=== PATIENT | female | born 1975 | race Caucasian/White ===

== ENCOUNTER 2017-03-07 16:18 | Emergency (ER) | payer OTHER ==
[~2017-03-07] VITALS: Ht 170.2 cm; Wt 166.4 kg
[2017-03-07 16:18] VITALS: BP 165/88
[~2017-03-07 16:18] MED LIST: AUGM500T34 PO; ZANTTAB PO
[2017-03-07] MEDS ORDERED: CLEO300C2 PO (19:45)
[2017-03-07] MEDS ORDERED: CLINDAMYCIN 150 MG CAP PO ONE (19:45)
[2017-03-18] MEDS ORDERED: BACT800T5 PO (08:07)
== END 2017-03-07 19:56 | disposition home or self-care (01) ==
LOC: M ED 16:18
DX: L03.316 Cellulitis of umbilicus (principal)

== ENCOUNTER → 2017-03-11 | Outpatient (CLI) | payer OTHER ==
[~2017-03-11] MED LIST changes: +BACT800T5 PO; +CLEO300C2 PO; +GASTROGRAFIN SOLUTION 30ML (Q9963) As Ordered ONE; +ISOVUE-370 76% 100ML VIAL (Q9967) As Ordered ONE
--- NOTE | 2017-03-11 11:16 | REP ---
CT abdomen and pelvis with IV and oral contrast: History: Pain in the umbilicus. Strangulation of hernia. Comparison study: May 17, 2015. CT contrast dose: 100 mL of intravenous Isovue 370. CT findings: Preliminary digital data technician radiograph demonstrates an unremarkable bowel gas pattern. The lung bases are clear. There is no evidence of pleural effusion or upper abdominal ascites. The liver is normal in size and homogeneous in texture with evidence of mild diffuse fatty infiltration. The spleen is unremarkable. No adrenal lesion is seen on either side. The gallbladder is surgically absent. No pancreatic abnormality. The kidneys enhance symmetrically and are morphologically intact. No retroperitoneal mass or adenopathy is seen. Normal caliber aorta. Small and large intestinal bowel loops are normal in the abdomen and pelvis. There is a ventral hernia at the umbilicus containing intra-abdominal omental fat. There is some inflammatory edema in the herniated fat and some thickening of the wall of the hernia. This suggests incarceration. No bowel is participating in this hernia. The defect in the anterior abdominal wall measures 2.7 cm craniocaudal by 3.4 cm medial to lateral. No other abdominal wall defect is seen. No uterine or adnexal abnormality is seen. Urinary bladder is unremarkable. No bony destructive lesion is seen. A normal air-filled appendix is seen in the right lower quadrant. Impression: Umbilical hernia transmitting abdominal fat with some inflammatory change suggest incarceration. No evidence of bowel obstruction. Signed by Joshua Garcia MD 03/11/2017 01:19 P
== END ==
LOC: M RAD 07:35
PROVIDERS: ATTEND Internal Medicine
DX: R10.33 Periumbilical pain (principal)

== ENCOUNTER 2017-03-20 10:51 | Day surgery (SDC) | payer OTHER ==
[~2017-03-20] VITALS: Ht 162.6 cm; Wt 163.3 kg
[~2017-03-20 10:51] MED LIST changes: -GASTROGRAFIN SOLUTION 30ML (Q9963) As Ordered ONE; -ISOVUE-370 76% 100ML VIAL (Q9967) As Ordered ONE
[2017-03-20] MEDS ORDERED: LR 1,000 ML IV ONE (11:00)
[2017-03-20 12:17] LABS: CONTROL LINE UCG INT CTR LINE PRESENT
[2017-03-20] MEDS ORDERED: BUPIVACAINE/EPIN 0.25% 30 ML VIAL As Ordered ONE (12:54)
[2017-03-20] MEDS ORDERED: ceFAZolin 1GM INJ (J0690) As Ordered ONE (13:34)
[2017-03-20] MEDS ORDERED: dexameTHASONE 4 MG/ML 1ML VIAL (J1100) As Ordered ONE (13:49)
[2017-03-20] MEDS ORDERED: MIDAZOLAM INJ 2 MG/2 ML VIAL (J2250) As Ordered ONE (13:49)
[2017-03-20] MEDS ORDERED: ROCURONIUM BROMIDE 50 MG/5 ML VIAL/SYRINGE As Ordered ONE ×2 (13:49→13:54)
[2017-03-20] MEDS ORDERED: fentaNYL 250 MCG/5 ML INJECTION (J3010) As Ordered ONE (13:49)
[2017-03-20] MEDS ORDERED: LIDOCAINE 2% INJ 100 MG/5 ML SDV (FOR ANES.) As Ordered ONE (13:49)
[2017-03-20] MEDS ORDERED: KETOROLAC 60 MG/2 ML VIAL (J1885) As Ordered ONE (13:49)
[2017-03-20] MEDS ORDERED: PROPOFOL 200 MG/20 ML VIAL As Ordered ONE (13:49)
[2017-03-20] MEDS ORDERED: NEOSTIGMINE 10 MG/10 ML VIAL (J2710) As Ordered ONE (13:50)
[2017-03-20] MEDS ORDERED: GLYCOPYRROLATE INJ 0.2 MG/ML 2 ML VIAL As Ordered ONE (13:50)
[2017-03-20] MEDS ORDERED: HYDROmorphone HCL 1 MG/ML SYRINGE (J1170) As Ordered ONE (15:04)
[2017-03-20] MEDS: HYDROmorphone HCL 1 MG/ML SYRINGE (J1170) IV PRN ×5 (15:07→15:32)
[2017-03-20] MEDS ORDERED: LR 1,000 ML IV SCH (15:15)
[2017-03-20] MEDS ORDERED: PERCOCET 5MG/325MG TAB PO PRN (15:15)
[2017-03-20] MEDS ORDERED: NORCO, ANEXSIA 5/325MG TABLET (HYDROcodone/ACETAMINOPHEN) PO PRN (15:15)
[2017-03-20] MEDS ORDERED: fentaNYL 100 MCG/2 ML INJECTION (J3010) IV PRN (15:15)
--- NOTE | 2017-03-20 16:22 | RO ---
DATE OF PROCEDURE: 03/20/2017 PREOPERATIVE DIAGNOSIS: Incarcerated umbilical hernia. POSTOPERATIVE DIAGNOSIS: Incarcerated umbilical hernia. PROCEDURE: Laparoscopic incarcerated umbilical hernia repair. SURGEON: Dr. Robles SPEECH AND LANGUAGE SPECIALIST: None. ANESTHESIA: General. ESTIMATED BLOOD LOSS: 5. COMPLICATIONS: None. INDICATIONS FOR PROCEDURE: The patient is 41-year female presents with a history of umbilical hernia that she has had for many years, over the past month or so to become red and starting to ooze around her umbilicus. She went to the ER for this and eventually was sent to me for evaluation. Recommendation was to proceed to laparoscopic possible open incarcerated umbilical hernia repair. Risks and benefits of the procedure not limited but including bleeding, infection, hernia formation, damage surrounding structure need further surgery discussed in detail with the patient. Informed consent was obtained and procedure was planned. PROCEDURE: The patient brought back to operating room eight after sufficient sedation. The abdomen was sterilely prepped, draped. Next time-out was done to firm proper patient and proper procedure. Following that a 5 mm incision made in the left lower quadrant. Veress needle was inserted and the abdomen was insufflated to 50 mmHg. Next a 5 mm OptiVu port used to gain access the abdomen. Once and was entered, another 5 mm port was placed in the left lower quadrant. Using a blunt grasper the almost 70-90% of the omentum was carefully retracted out of this large umbilical hernia through a defect that was only about 2-1/2 cm in diameter. Once this was all reduced the hernia sac was incised circumferentially using Enseal. Preperitoneal pocket was created inferiorly. Once this was done there was a nice flat area for mesh placement 12 cm round Parietex composite mesh. Had 0 Vicryl sutures placed in all four and was placed inside in the abdomen. Sutures were brought out through the abdominal wall using a Murali-Corral needle. The mesh was then tacked in place using secure straps in two rows circumferentially. Once this was all completed the abdomen was desufflated. Skin incisions were closed with 4-0 Vicryl subcutaneous sutures. The abdomen cleaned and dried. Steri-Strips, 4x4, and tape were applied thus ending procedure.
[2017-03-20 19:15] VITALS: BP 122/63
== END 2017-03-20 19:17 | disposition home or self-care (01) ==
LOC: M SDC 10:51
PROVIDERS: ATTEND Surgery
DX: K42.0 Umbilical hernia with obstruction, without gangrene (principal); K21.9 Gastro-esophageal reflux disease without esophagitis; F17.210 Nicotine dependence, cigarettes, uncomplicated; Z79.899 Other long term (current) drug therapy
CPT/HCPCS: 49653; 84703; C1781; J0690; J1100; J1170; J1885; J2250; J2710; J3010